=== PATIENT | male | born 1955 | race Hispanic/Latino ===

== ENCOUNTER → 2025-04-23 | Outpatient (CLI) | payer OTHER ==
--- NOTE | 2025-04-24 06:30 | HMCIMG ---
EXAM: CT Cardiac calcium scoring. CLINICAL HISTORY: CAD screening. TECHNIQUE: Thin collimated axial CT cardiac images were obtained. A CT scan is done according to ALARA (As Low As Reasonably Achievable). CONTRAST: None. COMPARISON: None provided. FINDINGS: Calcium Score: VESSEL Number of lesions Volume mm3 Equi. Mass/mg Calcium score LM 3 287.8 --.-- 317.1 LAD 9 436.8 --.-- 608.3 LCX 5 270.6 --.-- 352.4 RCA 10 809.7 --.-- 941.2 Total 27 1804.9 --.-- 2219.0 IMPRESSION: The calcium score is 2219. This places the patient above 90th percentile in comparison to a group of patients asymptomatic for coronary artery disease with the same age and gender. This means that >90% of males aged 70-74 have a calcium score that is lower than the patient's. /[place]
== END | disposition home or self-care (01) ==
LOC: RAH 13:20
PROVIDERS: ATTEND Internal Medicine Cardiovascular Disease
DX: Z13.6 Encounter for screening for cardiovascular disorders (principal)
CPT/HCPCS: 75571